=== PATIENT | female | born 1980 | race Caucasian/White ===

== ENCOUNTER 2018-11-05 09:15 | Inpatient (IN) | payer MEDICAID ==
[~2018-11-05] VITALS: Ht 165.1 cm; Wt 117.0 kg
[~2018-11-05 09:15] MED LIST: CEFOXITIN SODIUM 2 G in DEXT 5% WATER 100 ML IV NR
[2018-11-05 09:46] LABS: UCG SCREEN NEGATIVE
[2018-11-05] MEDS ORDERED: LACTATED RINGERS 1,000 ML IV SCH (11:15)
[2018-11-05] MEDS ORDERED: INDOCYANINE GREEN 25 MG VIAL IV ONE (14:23)
[2018-11-05] MEDS ORDERED: BUPIVACAINE HCL/PF 0.5% (5MG/ML) 10ML ONE (15:00)
[2018-11-05] MEDS ORDERED: NORMAL SALINE 0.9% 10 ML SYR ONE (15:00)
[2018-11-05] MEDS ORDERED: SKIN ADHESIVE 0.7 GM EA TOP ONE (15:00)
[2018-11-05] MEDS ORDERED: LIDOCAINE HCL 1% 20ML VIAL (Pyxis) INJ ONE (15:00)
[2018-11-05] MEDS ORDERED: BACITRACIN 50,000 UNITS/VIAL ONE (15:01)
[2018-11-05] MEDS ORDERED: NEOSTIGMINE METHYLSULFATE 1MG/ML 10 ML VIAL ONE (15:03)
[2018-11-05] MEDS ORDERED: FENTANYL CITRATE/PF 50MCG/ML 2ML VIAL ONE (15:03)
[2018-11-05] MEDS ORDERED: MIDAZOLAM HCL 2 MG/2 ML VIAL ONE (15:03)
[2018-11-05] MEDS ORDERED: PROPOFOL 200MG/20ML VIAL IV ONE ×2 (15:03→15:23)
[2018-11-05] MEDS ORDERED: GLYCOPYRROLATE 0.2 MG/ML 2ML VIAL ONE (15:04)
[2018-11-05] MEDS ORDERED: DEXAMETHASONE 4MG/ML 1ML VIAL ONE (15:19)
[2018-11-05] MEDS ORDERED: ONDANSETRON HCL 4MG/2ML INJ ONE (15:19)
[2018-11-05] MEDS ORDERED: ROCURONIUM BROMIDE 10MG/ML VIAL 5ML IV ONE (15:23)
[2018-11-05] MEDS ORDERED: LABETALOL 5MG/ML SYR 20 MG/4 ML SYRINGE IV PRN (15:45)
[2018-11-05] MEDS ORDERED: ONDANSETRON HCL 4MG/2ML INJ IV PRN ×2 (15:45→20:26)
[2018-11-05] MEDS ORDERED: MEPERIDINE HCL/PF 25MG/ML CPJ IV PRN (15:45)
[2018-11-05] MEDS ORDERED: HYDROMORPHONE HCL/PF 2MG/ML CPJ IV PRN ×2 (15:45→20:25)
[2018-11-05] MEDS ORDERED: HYDROMORPHONE HCL/PF 2MG/ML (OR) ONE (16:44)
[2018-11-05 20:30] VITALS: BP 119/69
[2018-11-05] MEDS: SODIUM CHLORIDE 0.45% 1,000 ML IV SCH (23:41)
[2018-11-05] MEDS: KETOROLAC 30MG/ML VIAL IV SCH (23:42)
[2018-11-06] VITALS: BP 129/81
[2018-11-06] MEDS: KETOROLAC 30MG/ML VIAL IV SCH ×2 (03:48→09:19)
[2018-11-06 04:00] VITALS: BP 133/83
[2018-11-06] MEDS: SODIUM CHLORIDE 0.45% 1,000 ML IV SCH (07:02)
[2018-11-06 08:00] VITALS: BP 109/68
[2018-11-06 11:17] VITALS: BP 110/64
[2018-11-06] MEDS ORDERED: PNEUMOCOCCAL 23-VAL P-SAC VAC 0.5 ML IM ONE (12:00)
== END 2018-11-06 12:15 | disposition home or self-care (01) | DRG 263 ==
LOC: OR 09:15 → 6EST 20:22
PROVIDERS: ADMIT Specialist; ATTEND Specialist
PROC: 0FT44ZZ Resection of Gallbladder, Percutaneous Endoscopic Approach (ICD-10-PCS; principal; 2018-11-06)
PROC: 8E0W4CZ Robotic Assisted Procedure of Trunk Region, Percutaneous Endoscopic Approach (ICD-10-PCS; 2018-11-06)
DX: K80.10 Calculus of gallbladder with chronic cholecystitis without obstruction (principal); Z68.41 Body mass index [BMI] 40.0-44.9, adult; E66.9 Obesity, unspecified; K82.8 Other specified diseases of gallbladder; Z98.891 History of uterine scar from previous surgery
CPT/HCPCS: 81025; 88304; J0694; J1100; J1170; J1885; J2175; J2250; J2405; J2704; J2710; J3010; J3490; J7060; Q9957